=== PATIENT | female | born 1950 | race African-American/Black ===

== ENCOUNTER 2022-08-20 23:22 | Inpatient (IN) | payer MEDICARE, OTHER ==
[~2022-08-20] VITALS: Ht 170.2 cm; Wt 58.1 kg
--- NOTE | 2022-08-20 23:30 | NUR ---
TO ER BED 3. [id number] C/O EPIGASTRIC PAIN W/ NAUSEA, VOMMITING & DIARRHEA X 1800. PT IS ALERT AND ORIENTED. RR EVEN AND NON LABORED. EMESIS BAG PROVIDED. POX AND HEART MONITOR CONNECTED. AWAITING MD CARBAJAL
[2022-08-20] MEDS ORDERED: MORPHINE SULFATE INJ 2 MG/ML DISP.SYRIN ONE (23:44)
[2022-08-20] MEDS ORDERED: ONDANSETRON HCL/PF 4 MG/2 ML VIAL ONE (23:44)
[2022-08-21] MEDS ORDERED: ONDANSETRON HCL/PF 4 MG/2 ML VIAL IVP ONE
[2022-08-21] MEDS ORDERED: IV NS 0.9% 1,000 ML BAG IV ONE
--- NOTE | 2022-08-21 00:04 | NUR ---
BLOOD COLLECTED AND SENT TO LAB
--- NOTE | 2022-08-21 00:04 | NUR ---
PT UNABLE TO PROVIDE URINE SAMPLE AT THIS TIME
--- NOTE | 2022-08-21 00:04 | NUR ---
IV LINE ESTABLISHED, LAC20G
[2022-08-21 00:24] LABS: BASOPHILS % (AUTO) 0.3 % (0.0-2.0); EOSINOPHILS % (AUTO) 0.1 % (0.0-6.0); HEMATOCRIT 38 % (33-45); HEMOGLOBIN 12.8 g/dL (11.5-14.8); LYMPHOCYTES # (AUTO) 0.6 K/uL (0.8-4.8); LYMPHOCYTES % (AUTO) 5.2 % (20.0-44.0); MEAN CORPUSCULAR HGB CONC 34 g/dl (31.0-36.0); MEAN CORPUSCULAR VOLUME 94 fL (82-100); MONOCYTES # (AUTO) 0.2 K/uL (0.1-1.30); MONOCYTES % (AUTO) 2.3 % (2.0-12.0); NEUTROPHILS # (AUTO) 9.8 K/uL (1.8-8.9); NEUTROPHILS % (AUTO) 92.1 % (43.0-81.0); PLATELET COUNT (AUTO) 207 K/uL (150-450); RED BLOOD CELL COUNT(AUTO) 4.03 MIL/uL (4.0-5.2); WHITE BLOOD COUNT (AUTO) 10.7 K/uL (4.3-11.0)
[2022-08-21 00:42] LABS: CALCIUM, SERUM 9.9 mg/dL (8.5-10.1); CARBON DIOXIDE 28 mmol/L (21-32); CHLORIDE 101 mmol/L (98-107); CREATININE 0.9 mg/dL (0.6-1.3); GLUCOSE 171 mg/dL (74-106); SODIUM SERUM 138 mmol/L (136-145); UREA NITROGEN, BLOOD 20 mg/dL (7-18)
--- NOTE | 2022-08-21 00:52 | NUR ---
PT TAKEN TO CT SCAN VIA GILBERT
[2022-08-21 00:56] LABS: ALANINE AMINOTRANSFERASE 33 U/L (12-78); ALBUMIN 4.1 g/dL (3.4-5.0); ALKALINE PHOSPHATASE 55 U/L (46-116); ASPARTATE AMINOTRANSFERASE 28 U/L (15-37); BILIRUBIN,DIRECT 0.1 mg/dL (0.0-0.2); BILIRUBIN,TOTAL 0.5 mg/dL (0.2-1.0); LIPASE 120 U/L (73-393); TOTAL PROTEIN, SERUM 8.3 g/dL (6.4-8.2)
--- NOTE | 2022-08-21 01:11 | NUR ---
PT RETURNED FROM CT , RECONNECTED TO MONITOR
[2022-08-21] MEDS ORDERED: MORPHINE SULFATE INJ 4 MG/ML DISP.SYRIN ONE (01:38)
[2022-08-21] MEDS ORDERED: ONDANSETRON HCL/PF 4 MG/2 ML VIAL ONE (01:38)
--- NOTE | 2022-08-21 01:49 | NUR ---
[facility] PAGED
--- NOTE | 2022-08-21 01:53 | NUR ---
COVID SWAB COLLECTED
[2022-08-21] MEDS ORDERED: ASPIRIN 325 MG TABLET ONE (01:54)
[2022-08-21] MEDS ORDERED: ACETAMINOPHEN 325 MG TABLET PO PRN (02:00)
[2022-08-21] MEDS ORDERED: MORPHINE SULFATE INJ 2 MG/ML DISP.SYRIN IV ONE ×2 (02:00)
[2022-08-21] MEDS ORDERED: ONDANSETRON HCL/PF 4 MG/2 ML VIAL IV ONE (02:00)
[2022-08-21] MEDS ORDERED: ASPIRIN 325 MG TABLET NG ONE (02:00)
[2022-08-21] MEDS ORDERED: hydrALAZINE HCL IV 20 MG VIAL IV PRN (02:00)
--- NOTE | 2022-08-21 02:19 | NUR ---
NG TUBE INSERTED TO R NARE 14 WELSH @60CM , CALLED XRAY TO CONFIRM PLACEMENT
--- NOTE | 2022-08-21 03:04 | NUR ---
REPORT GIVEN TO DIAMANTE HAGER FOR NAZIA
--- NOTE | 2022-08-21 03:15 | NUR ---
RN ADMITTING NOTE PATIENT RECEIVED FROM RYLAN JACKSON RN. PATIENT IS A/O X 4 ABLE TO MAKE NEEDS KNOWN. PATIENT IS ON RA, TOLERATING WELL, NO SOB NOTED. PATIENT RECEIVED WITH NGT IN PLACE, CXR SHOWS POSITIVE PLACEMENT, ASPIRATED GASTRIC FLUID, AND PUSHED AIR WHILE AUSCULTATING, STOMACH SOUNDS HEARD UPON DOING SO. NOTED TO BE ON THE 63 [address]. PATIENT IS NOT IN ANY PAIN AT THIS TIME, AND PATIENT DENIES NAUSEA/VOMITTING. PATIENT IS CURRENTLY NPO. PATIENT HAS A LAC 20 G PATENT AND INTACT, FLUSHING WELL. PATIENT'S BELONGIGNS INVENTORIED. PATIENT ORIENTED TO ROOM, RN, AND CASINO FLOOR WALKER. PATIENT STATES THAT SHE IS COVID VACCINATED X 2, FLU SHOT RECEIVED THIS SEASON, AND PNEUMONIA SHOT WILL BE RECEIVED ELSEWHERE. SAFETY MEASURES IN PLACE: BED LOCKED AND IN LOWEST POSITION, CALL LIGHT WITHIN REACH, SIDE RAILS UP. WILL MONITOR PATIENT CLOSELY.
--- NOTE | 2022-08-21 04:00 | NUR ---
OBTAINED ORDER FROM DR GODINEZ TO CONNECT PATIENT ON LOW INTERMITTENT SUCTION, ORDER CARRIED OUT.
[2022-08-21] MEDS: IV NS 0.9% 1,000 ML IV SCH ×2 (04:11→15:41)
[2022-08-21 04:14] LABS: BILIRUBIN,URINE NEGATIVE (NEGATIVE); COLOR,URINE YELLOW (YELLOW); LEUKOCYTE ESTERASE ,URINE NEGATIVE (NEGATIVE); NITRITE, URINE POSITIVE (NEGATIVE); PROTEIN,URINE NEGATIVE (NEGATIVE); UGLUCOSE NEGATIVE (NEGATIVE); UROBILINOGEN,URINE 0.2 EU/dL (0.2)
[2022-08-21 04:19] LABS: BACTERIA,URINE Many /HPF (None Seen); RBC,URINE 0-2 /HPF (0-2); SQUAMOUS EPITHELIAL CELL,UR Few /HPF (None Seen)
--- NOTE | 2022-08-21 05:25 | NUR ---
INFORMED MD THAT PATIENT'S POTASSIUM LEVEL IS 3.0, MD ORDERED KCL 40 MEQ IV ONCE.
--- NOTE | 2022-08-21 05:40 | NUR ---
HOME MEDICATION BOTTLES DOCUMENTED AND PLACED IN A "PATIENT'S OWN MEDICATIONS ENVELOPE", PATIENT SIGNED AND PLACED ATTACHMENT IN THE CHART. WILL GIVE ENVELOPE TO PHARMACY
[2022-08-21] MEDS ORDERED: LEVO50TA8 PO (05:42)
[2022-08-21] MEDS ORDERED: HYDR25TA4 PO (05:42)
[2022-08-21] MEDS: POTASSIUM CHLORIDE 10 MEQ/50 ML PREMIXED IVPB FOR PERIPHERAL LINE IV SCH ×4 (05:48→09:14)
--- NOTE | 2022-08-21 06:53 | NUR ---
RN CLOSING NOTE PATIENT IN BED, EYES CLOSED. PATIENT IS EASILY AWAKENED. NGT PATENCY AND POSITIVE PLACEMENT MAINTAINED, LOW INTERMITTENT SUCTION ON. PATIENT HAS ONGOING POTASSIUM CHLORIDE IV (SECOND BAG) ON THE L AC 20 G WELL NS AT 75 ML/HR, INFUSING WELL. PATIENT REPORTS NO ABDOMINAL PAIN AND DENIES ANY NAUSEA AT THIS TIME, AND NO VOMITTING DURING THE SHIFT. TELE MONITOR READS SR 60 BPM. SAFETY MEASURES IN PLACE: BED LOCKED AND IN LOWEST POSITION, CALL LIGHT WITHIN REACH, SIDE RAILS UP. ALL NEEDS MET AND ATTENDED. ALL ORDERS CARRIED OUT. WILL ENDORSE TO DAY SHIFT NURSE FOR NAZIA.
--- NOTE | 2022-08-21 07:00 | NUR ---
WAREHOUSE GUARD OPENING NOTES PATIENT LAYING IN BED, A/O X 3, ABLE TO MAKE NEEDS KNOWN, TOLERATING WELL ON LOW INTERMITTENT SUCTION VIA NG TUBE. POTASSIUM CHLORIDE INFUSION ONGOING VIA L AC # 20 IV WELL NS @ 75 ML/HR. TELE MONITOR IN PLACE READING NSR. SAFETY MEASURES IN PLACE: BED IN LOWEST LOCKED POSITION, SIDE RAILS UP X 2, CALL LIGHT WITHIN REACH. WILL CONTINUE TO MONITOR.
[2022-08-21 08:00] VITALS: BP 155/80
[2022-08-21] MEDS: MORPHINE SULFATE INJ 2 MG/ML DISP.SYRIN IV PRN ×2 (08:15→14:42)
[2022-08-21 10:19] LABS: THYROID STIMULATING HORMONE 0.937 uIU/mL (0.358-3.74)
[2022-08-21 10:38] LABS: MAGNESIUM 2.5 mg/dL (1.8-2.4)
[2022-08-21] MEDS: CEFTRIAXONE 1 G in IV D5W 50 ML IV SCH (10:50)
[2022-08-21] MEDS: ONDANSETRON HCL/PF 4 MG/2 ML VIAL IVP PRN (11:16)
[2022-08-21] MEDS ORDERED: Magnesium 1GM/D5W 100ML PREMIX 100 ML IV SCH (13:00)
[2022-08-21 16:00] VITALS: BP 153/74
--- NOTE | 2022-08-21 19:00 | NUR ---
SANDBLASTER SUPERVISOR CLOSING NOTES PATIENT LAYING IN BED, A/O X 3, ABLE TO MAKE NEEDS KNOWN, TOLERATING WELL ON LOW INTERMITTENT SUCTION VIA NG TUBE. L AC # 20 IV WITH NS INFUSING @ 75 ML/HR. TELE MONITOR IN PLACE READING SINUS ADA 58. SAFETY MEASURES IN PLACE: BED IN LOWEST LOCKED POSITION, SIDE RAILS UP X 2, CALL LIGHT WITHIN REACH. ALL NEEDS MET. WILL ENDORSE TO MACHINE SHOP SUPERVISOR FOR NAZIA.
--- NOTE | 2022-08-21 19:30 | NUR ---
LOGGER ALL ROUND OPENING NOTE RECEIVED PATIENT IN BED, WITH HOB ELEVATED, ALERT AND ORIENTED X2. ABLE TO MAKE NEEDS KNOWN. AFEBRILE AND NOT IN ANY FORM OF ACUTE DISTRESS. BREATHING EVEN AND NON LABORED. ON TELE MONITORING SR. WITH NG TUBE ON LOW INTERMITTENT SUCTION. MAINTAINED ON NPO ORDERED. WITH IV ACCESS ON LAC 20G RUNNING WITH NS AT 75ML/HR. SAFETY MEASURES IN PLACE. KEPT BED IN LOCKED AND IN LOW POSITION. SIDE RAILS UP X2. ADVISED TO USE THE CALL LIGHT WHEN IN NEED OF ASSISTANCE.
[2022-08-21 20:00] VITALS: BP 139/68
[2022-08-22] VITALS: BP 158/76
[2022-08-22] MEDS: ONDANSETRON HCL/PF 4 MG/2 ML VIAL IVP PRN (03:10)
[2022-08-22] MEDS: MORPHINE SULFATE INJ 2 MG/ML DISP.SYRIN IV PRN (03:30)
[2022-08-22 04:00] VITALS: BP 143/77
[2022-08-22] MEDS: IV NS 0.9% 1,000 ML IV SCH ×2 (04:51→18:22)
[2022-08-22 06:27] LABS: BASOPHILS % (AUTO) 0.2 % (0.0-2.0); EOSINOPHILS % (AUTO) 0.2 % (0.0-6.0); HEMATOCRIT 37 % (33-45); HEMOGLOBIN 12.6 g/dL (11.5-14.8); LYMPHOCYTES # (AUTO) 0.6 K/uL (0.8-4.8); LYMPHOCYTES % (AUTO) 7.2 % (20.0-44.0); MEAN CORPUSCULAR HGB CONC 34 g/dl (31.0-36.0); MEAN CORPUSCULAR VOLUME 96 fL (82-100); MONOCYTES # (AUTO) 0.4 K/uL (0.1-1.30); MONOCYTES % (AUTO) 5.3 % (2.0-12.0); NEUTROPHILS % (AUTO) 87.1 % (43.0-81.0); PLATELET COUNT (AUTO) 193 K/uL (150-450); RED BLOOD CELL COUNT(AUTO) 3.88 MIL/uL (4.0-5.2)
--- NOTE | 2022-08-22 06:39 | NUR ---
CAMP MANAGER CLOSING NOTE PATIENT IN BED, WITH HOB ELEVATED, ALERT AND ORIENTED X4. ABLE TO COMMUNICATE NEEDS WITH THE STAFFS. AFEBRILE AND NOT IN ANY FORM OF ACUTE DISTRESS. BREATHING EVEN AND NON LABORED. NO C/O PAIN OR DISCOMFORT AT THIS TIME OF THE SHIFT. ON TELE MONITORING SB 58 WITH PAC. WITH NG TUBE ON LOW INTERMITTENT SUCTION. MAINTAINED ON NPO ORDERED. WITH IV ACCESS ON LAC 20G RUNNING WITH NS AT 75ML/HR. SAFETY MEASURES IN PLACE. KEPT BED IN LOCKED AND IN LOW POSITION. SIDE RAILS UP X2. ADVISED TO USE THE CALL LIGHT WHEN IN NEED OF ASSISTANCE. ALL NURSING NEEDS ATTENDED. ENDORSED TO INCOMING SHIFT FOR CONTINUITY OF CARE.
[2022-08-22 06:54] LABS: ALBUMIN 3.3 g/dL (3.4-5.0); BILIRUBIN,TOTAL 0.6 mg/dL (0.2-1.0); CALCIUM, SERUM 8.7 mg/dL (8.5-10.1); CREATININE 0.8 mg/dL (0.6-1.3); MAGNESIUM 2.8 mg/dL (1.8-2.4); PHOSPHORUS 2.5 mg/dL (2.5-4.9); POTASSIUM 3.3 mmol/L (3.5-5.1); TOTAL PROTEIN, SERUM 7.2 g/dL (6.4-8.2)
--- NOTE | 2022-08-22 07:00 | NUR ---
NET DEVELOPER CONSULTANT OPENING NOTES PATIENT LAYING IN BED, HOB ELEVATED, A/O X 4 AND ABLE TO MAKE NEEDS KNOWN. TOLERATING WELL ON ROOM AIR WITH NO S/S RESPIRATORY DISTRESS. NGT INSERTED IN R NARE TO LOW INTERMITTENT SUCTIONING, TOLERATING WELL. PATIENT ON NPO STATUS. NO COMPLAINTS OF PAIN OR DISCOMFORT AT THIS TIME. TELE MONITOR IN PLACE READING SINUS ADA. L AC # 20 IV WITH NS @ 75 ML/HR. SAFETY MEASURES IN PLACE. KEPT BED IN LOCKED AND IN LOW POSITION. SIDE RAILS UP X2. ADVISED TO USE THE CALL LIGHT WHEN IN NEED OF ASSISTANCE. WILL CONTINUE TO MONITOR.
[2022-08-22 08:00] VITALS: BP 143/77
[2022-08-22] MEDS: ENOXAPARIN SODIUM 40 MG/0.4 ML DISP.SYRIN SQ SCH (08:55)
[2022-08-22] MEDS: POTASSIUM CL. PREMIX PERIPHER. 50 ML IV SCH ×4 (08:55→13:15)
[2022-08-22] MEDS: CEFTRIAXONE 1 G in IV D5W 50 ML IV SCH (10:36)
[2022-08-22 12:00] VITALS: BP 139/62
[2022-08-22 16:00] VITALS: BP 131/57
--- NOTE | 2022-08-22 19:00 | NUR ---
LEGAL DIRECTOR CLOSING NOTES PATIENT LAYING IN BED, HOB ELEVATED, A/O X 4 AND ABLE TO MAKE NEEDS KNOWN. TOLERATING WELL ON ROOM AIR WITH NO S/S RESPIRATORY DISTRESS. NGT INSERTED IN R NARE TO LOW INTERMITTENT SUCTIONING, TOLERATING WELL. PATIENT ON NPO STATUS. NO COMPLAINTS OF PAIN OR DISCOMFORT AT THIS TIME. TELE MONITOR IN PLACE READING SINUS ADA. L AC # 20 IV WITH NS @ 75 ML/HR. SAFETY MEASURES IN PLACE. KEPT BED IN LOCKED AND IN LOW POSITION. SIDE RAILS UP X2. ADVISED TO USE THE CALL LIGHT WHEN IN NEED OF ASSISTANCE. ALL NEEDS MET. WILL ENDORSE TO TANK BUILDER AND ERECTOR FOR NAZIA.
--- NOTE | 2022-08-22 19:52 | NUR ---
SIGNING AGENT OPENING NOTES: RECEIVED PATIENT AWAKE IN BED, BED IN LOW POSITION CALL LIGHTS WITHIN REACH, NO COMPLAIN OF PAIN AND DISCOMFORT AT THIS TIME, ON ROOM AIR SATURATING WELL, PATIENT IS A/OX4 AMBULATORY, ON NGT FEEDING , NPO, ON TELE MONITOR- SB-48, PATIENT KEPT CLEAN AND DRY ALL NEEDS MET WILL CONTINUE TO MONITOR.
[2022-08-22 20:00] VITALS: BP 150/80
[2022-08-23] VITALS (7 sets, daily range): BP systolic 112–144; BP diastolic 62–88
--- NOTE | 2022-08-23 06:08 | NUR ---
FINANCIAL REPORTING CONSULTANT CLOSING NOTES: PATIENT SLEEP IN BED COMFORTABLY, AROUSABLE TO VERBAL STIMULI, BED IN LOW POSITION CALL LIGHTS WITHIN REACH, ON ROOM AIR SATURATING WELL, NO SOB WAS OBSERVED, ON TELE MONITOR- SB 48, PATIENT IS A/OX4 ABLE TO MAKE NEEDS KNOWN, AMBULATORY WITH SUPERVISION, WITH NGT ON GASTRIC EMPTYING TO INTERMITTENT SUCTION, PATIENT KEPT CLEAN AND DRY ALL NEEDS MET ENDORSE TO INCOMING SHIFT.
--- NOTE | 2022-08-23 07:00 | NUR ---
PRECISION INSTRUMENT MAKER AND REPAIRER OPENING NOTES PATIENT LAYING IN BED, HOB ELEVATED, A/O X 4 AND ABLE TO MAKE NEEDS KNOWN. TOLERATING WELL ON ROOM AIR WITH NO S/S RESPIRATORY DISTRESS. NGT INSERTED IN R NARE TO LOW INTERMITTENT SUCTIONING, TOLERATING WELL. PATIENT ON NPO STATUS. NO COMPLAINTS OF PAIN OR DISCOMFORT AT THIS TIME. TELE MONITOR IN PLACE READING SINUS ADA. L AC # 20 IV WITH NS @ 75 ML/HR. SAFETY MEASURES IN PLACE. KEPT BED IN LOCKED AND IN LOW POSITION. SIDE RAILS UP X2. ADVISED TO USE THE CALL LIGHT WHEN IN NEED OF ASSISTANCE. WILL CONTINUE TO MONITOR. Addendum: 08/23/22 at 1527 by SARAH RAYMOND RN DISREGARD NOTE
--- NOTE | 2022-08-23 07:27 | NUR ---
UPHOLSTERER HELPER OPENING NOTE RECEIVED PT AWAKE AND RESTING IN BED. PT A/O X4, ABLE TO MAKE NEED KNOWN. ON ROOM AIR, TOLERATING WELL. NO SOB NOTED. NOT IN ANY SIGN OF RESPIRATORY DISTRESS. ON TELE NATUROPATHIC ONCOLOGY PROVIDER WITH CURRENT READING OF SINUS RHYTHM, HR 74. NO C/O OF CARDIAC DISTRESS VOICED OUT AT THIS TIME. IV ACCESS IN LAC G#20, INTACT AND PATENT. PT'S NG TUBE TO RIGHT NARE IN PLACE AND PATENT. SAFETY MEASURES IN PLACE: BED IN LOWEST AND LOCKED POSITION, SIDE RAILS UPX2, BED ALARM ON, KEPT HOB ELEVATED, AND CALL LIGHT WITHIN REACH. WILL CONTINUE TO MONITOR PT.
[2022-08-23] MEDS: ENOXAPARIN SODIUM 40 MG/0.4 ML DISP.SYRIN SQ SCH (08:58)
--- NOTE | 2022-08-23 10:15 | NUR ---
RN NOTE DR. LAMBERT ORDERED TO CLAMP NG TUBE AND CHECK RESIDUAL IN 4HRS, IF RESIDUAL <100, MAY D/C NG TUBE AND START CLEAR LIQUIDS. IF RESIDUAL IS >100, RESUME SUCTIONING AND PROCEED TO SMALL BOWEL FOLLOW THROUGH TOMORROW MORNING. NG TUBE CLAMPED ORDERED, TOLERATING WELL. PT DENIES NAUSEA AND VOMITING AT THIS TIME. WILL MONITOR AND REASSESS PT.
[2022-08-23] MEDS: CEFTRIAXONE 1 G in IV D5W 50 ML IV SCH (11:22)
--- NOTE | 2022-08-23 14:15 | NUR ---
RN NOTE AFTER 4HRS AFTER NG TUBE WAS CLAMPED, CHECKED RESIDUAL AND IT'S 20CC. NG TUBE REMOVED AND CLEAR LIQUID DIET STARTED ORDERED BY DR. LAMBERT. DENIES NAUSEA AND VOMITING AT THIS TIME.
--- NOTE | 2022-08-23 19:00 | NUR ---
PAPER TUBE GRADER OPENING NOTE RECEIVED PT IN BED, AWAKE. PT IS CALM, A/O X4. SHE IS ABLE TO MAKE NEEDS KNOWN. PATIENT IS ON CLEAR LIQUID DIET AFTER NPO. SHE STATES THAT SHE TAKES THE CLEAR LIQUID IN SMALL PORTION EACH TIME. PATIENT DENIES OF HAVING PAIN. NO N/V. PATIENT IS ON ROOM AIR, TOLERATING WELL. NO S/S OF SOB OR DISTRESS. SHE IS ON TELE CONTACT CENTER REPRESENTATIVE WITH SINUS RHYTHM AROUND 60'S. IV ACCESS IN LAC #20 G, SL, INTACT AND PATENT. SAFETY MEASURES IN PLACE: BED IN LOWEST AND LOCKED POSITION, SIDE RAILS UPX2, BED ALARM ON, KEPT HOB ELEVATED, AND CALL LIGHT WITHIN REACH. WILL CONTINUE TO MONITOR THE PT THROUGH THE SHIFT.
--- NOTE | 2022-08-23 19:20 | NUR ---
CAN FEEDER CLOSING NOTE PT AWAKE AND RESTING IN BED. PT A/O X4, ABLE TO MAKE NEED KNOWN. ON ROOM AIR, TOLERATING WELL. NO SOB NOTED. NOT IN ANY SIGN OF RESPIRATORY DISTRESS. ON TELE GAME BIRD FARMER WITH CURRENT READING OF SINUS RHYTHM, HR 80. NO C/O OF CARDIAC DISTRESS VOICED OUT AT THIS TIME. IV ACCESS IN LAC G#20, INTACT AND PATENT. ALL NEEDS ATTENDED. KEPT CLEAN AND COMFORTABLE AT ALL TIMES. PT DENIES PAIN, NAUSEA AND VOMITING AT THIS TIME. SAFETY MEASURES IN PLACE: BED IN LOWEST AND LOCKED POSITION, SIDE RAILS UPX2, BED ALARM ON, KEPT HOB ELEVATED, AND CALL LIGHT WITHIN REACH. ENDORSED TO FLAGSTONE LAYER NURSE FOR NAZIA.
--- NOTE | 2022-08-23 19:57 | NUR ---
DOG POUND ATTENDANT NOTE PATIENT'S HEART RATE RUNS UP AROUND 130'S. ON THE TELE MONITOR: SINUS TACHY. CHECKED THE PATIENT, SHE WAS IN HER BED TALKING OVER THE PHONE AND CRYING. SHE SAID THE REASON SHE WAS CRYING BECAUSE HER NEIGHBOR . ASKED THE PATIENT WAS SHE FEELING OKAY, SHE STATED THAT SHE WAS OKAY. SHE IS STILL TALKING OVER THE PHONE. TOLD THE PATIENT TO LET ME KNOW IF ANYTHING I CAN DO FOR HER. SHE VERBALIZED OKAY AND THANK YOU.
[2022-08-24 04:28] VITALS: BP 109/71
[2022-08-24 06:22] LABS: CALCIUM, SERUM 8.7 mg/dL (8.5-10.1); CREATININE 0.7 mg/dL (0.6-1.3); POTASSIUM 3.1 mmol/L (3.5-5.1)
[2022-08-24 06:23] LABS: BASOPHILS % (AUTO) 0.4 % (0.0-2.0); EOSINOPHILS % (AUTO) 1.3 % (0.0-6.0); HEMATOCRIT 32 % (33-45); LYMPHOCYTES # (AUTO) 1.1 K/uL (0.8-4.8); MEAN CORPUSCULAR HGB CONC 34 g/dl (31.0-36.0); MEAN CORPUSCULAR VOLUME 94 fL (82-100); MONOCYTES # (AUTO) 0.6 K/uL (0.1-1.30); MONOCYTES % (AUTO) 10.9 % (2.0-12.0); NEUTROPHILS # (AUTO) 3.4 K/uL (1.8-8.9); NEUTROPHILS % (AUTO) 66.4 % (43.0-81.0); PLATELET COUNT (AUTO) 190 K/uL (150-450); RED BLOOD CELL COUNT(AUTO) 3.43 MIL/uL (4.0-5.2); WHITE BLOOD COUNT (AUTO) 5.1 K/uL (4.3-11.0)
--- NOTE | 2022-08-24 07:29 | NUR ---
LOAN OFFICER ASSISTANT OPENING NOTES PT RECEIVED AWAKE IN BED IN NO ACUTE SIGNS OF DISTRESS. A/O X4. ABLE TO MAKE NEEDS KNOWNM DENIES PAIN OR ANY DISCOMFORTS AT THIS TIME. ON ROOM AIR, TOLERATING WELL. NO S/S OF SOB OR DISTRESS. ON TELE PRESS SUPERVISOR WITH CURRENT READING OF SB.HR 54, NO C/O CARDIAC DISTRESS VOICED AT THIS TIME. IV ACCESS IN LAC #20 G, SL, INTACT AND PATENT. SAFETY MEASURES IN PLACE: BED IN LOWEST LOCKED POSITION, SIDE RAILS UPX2, BED ALARM ON, KEPT HOB ELEVATED AND CALL LIGHT WITHIN REACH. WILL CONTINUE TO MONITOR PT ACCORDINGLY.
[2022-08-24] MEDS: POTASSIUM CL. PREMIX PERIPHER. 50 ML IV SCH ×4 (08:05→12:21)
[2022-08-24] MEDS: ENOXAPARIN SODIUM 40 MG/0.4 ML DISP.SYRIN SQ SCH (08:06)
--- NOTE | 2022-08-24 08:17 | NUR ---
ACCOUNTING ADMINISTRATIVE ASSISTANT CLOSING NOTE PT IS AWAKE AND CALM. DURING THE SHIFT, SHE WALKS IN THE HALLWAY AFTER WAKING UP IN THE MORNING. GAIT IS STEADY. A/O X4. SHE IS ABLE TO MAKE NEEDS KNOWN. PATIENT IS ON CLEAR LIQUID DIET, TOLERATED WELL. PATIENT DENIES OF HAVING PAIN. NO N/V. PATIENT IS ON ROOM AIR, NO S/S OF SOB OR DISTRESS. SHE IS ON TELE SUBWAY CONDUCTOR WITH SINUS RHYTHM AROUND 60'S AND 50'S. IV ACCESS IN LAC #20 G, SL, INTACT AND PATENT. SAFETY MEASURES IN PLACE: BED IN LOWEST AND LOCKED POSITION, SIDE RAILS UPX2, BED ALARM ON, KEPT HOB ELEVATED, AND CALL LIGHT WITHIN REACH. WILL ENDORSE NEXT SHIFT NURSE FOR CONTINUE PATIENT CARE.
[2022-08-24 08:24] VITALS: BP 135/64
--- NOTE | 2022-08-24 10:18 | NUR ---
RN NOTES DR MEJIA ON UNIT EARLIER AND REPORTED TO HIM THAT PT HAS POLTS THAT STATED SHE'S DNR. ASKED IF WE'LL FOLLOW THE POLTS AND HE SAID "YES". Addendum: 08/24/22 at 1819 by GOLD HOLBROOK RN CORRECTION: PATIENT IS FULL CODE NOT DNR
[2022-08-24] MEDS: CEFTRIAXONE 1 G in IV D5W 50 ML IV SCH (11:27)
[2022-08-24 16:16] VITALS: BP 146/72
--- NOTE | 2022-08-24 18:38 | NUR ---
EDI PROGRAMMER ANALYST CLOSING NOTES PT ON THE HALLWAY WALKING AND TALKING TO SOMEONE ON HER CP. A/O X4. ABLE TO MAKE NEEDS KNOWN. ON ROOM AIR, TOLERATING WELL., NO S/S OF SOB OR ACUTE RESPIRATORY DISTRESS NOTED DURING SHIFT. ON TELE MONITOR WITH CURRENT READING OF SR HR 81, NO C/O CARDIAC DISTRESS VOICED. IV ACCESS IN LAC #20 G, SL, INTACT AND PATENT. ALL NEEDS AND CARE ATTENDED WELL. SAFETY MEASURES KEPT IN PLACE: CALL LIGHT WITHIN REACH OF PT. WILL ENDORSE NAZIA TO BELT MEASURER NURSE.
--- NOTE | 2022-08-24 18:54 | NUR ---
RN NOTES PT COMPLAINED THAT SHE'S VERY UNCOMFORTABLE WITH HER IV ACCESS ON LAC AND WANTED IT REMOVED. REMOVED PIV ON RAC G# 20 WITH NO ACTIVE BLEEDING NOTED, DRY PRESSURE DRESSING APPLIED AT SITE AND INSERTED NEW IV ACCESS ON RFA G#22 AND SECURED WITH TAPE.
--- NOTE | 2022-08-24 19:10 | NUR ---
RN OPENING NOTE PATIENT IN BED, AWAKE. PATIENT IS A/O X 4, ABLE TO MAKE NEEDS KNOWN. ON RA, TOLERATING WELL. NO SOB NOTED. TELE MONITOR READS SR 60 BPM. PATIENT CURRENTLY HAS A RFA 22 G RUNNING KCL IV AT THIS TIME. PATIENT DOES NOT REPORT ANY N/V, DENIES PAIN. SAFETY MEASURES IN PLACE: BED LOCKED AND IN LOWEST POSITION, CALL LIGHT WITHIN REACH, SIDE RAILS UP. WILL MONITOR PATIENT CLOSELY.
--- NOTE | 2022-08-24 19:20 | NUR ---
PATIENT EXPRESSES DISCOMFORT REGARDING HER NEW IV ACCESS ON THE RFA, STATES THAT SHE CAN'T DO ANYTHING WITH HER HAND NOW BECAUSE OF THE PLACEMENT. PATIENT INSIST ON REMOVING NEW IV ACCESS AND INSERTING A NEW ONE HIGHER ON THE FA. INFORMED PATIENT THAT WE WILL TRY TO INSERT NEW IV AT A LATER TIME.
[2022-08-24 20:00] VITALS: BP 137/75
[2022-08-25] VITALS: BP 121/65
--- NOTE | 2022-08-25 03:00 | NUR ---
ATTEMPTED TO PUT NEW IV ACCESS BUT PATIENT STATES THAT SHE CHANGED HER MIND AND THAT SHE IS OKAY WITH THE PLACEMENT OF THE IV ACCESS. IV FLUSHING WELL, NOLEAKAGE OR SIGNS OF INFILTRATION NOTED.
[2022-08-25 04:00] VITALS: BP 129/75
[2022-08-25 04:33] VITALS: BP 121/65
[2022-08-25 06:46] LABS: BASOPHILS % (AUTO) 0.6 % (0.0-2.0); EOSINOPHILS % (AUTO) 1.6 % (0.0-6.0); HEMATOCRIT 36 % (33-45); HEMOGLOBIN 12.3 g/dL (11.5-14.8); LYMPHOCYTES # (AUTO) 0.8 K/uL (0.8-4.8); LYMPHOCYTES % (AUTO) 18.8 % (20.0-44.0); MEAN CORPUSCULAR HGB CONC 34 g/dl (31.0-36.0); MEAN CORPUSCULAR VOLUME 94 fL (82-100); MONOCYTES # (AUTO) 0.3 K/uL (0.1-1.30); MONOCYTES % (AUTO) 7.5 % (2.0-12.0); NEUTROPHILS # (AUTO) 3.2 K/uL (1.8-8.9); NEUTROPHILS % (AUTO) 71.5 % (43.0-81.0); PLATELET COUNT (AUTO) 226 K/uL (150-450); RED BLOOD CELL COUNT(AUTO) 3.84 MIL/uL (4.0-5.2); WHITE BLOOD COUNT (AUTO) 4.5 K/uL (4.3-11.0)
--- NOTE | 2022-08-25 06:56 | NUR ---
RN CLOSING NOTE PATIENT IN BED, AWAKE. PATIENT IS A/O X 4, ABLE TO MAKE NEEDS KNOWN. ON RA, TOLERATING WELL. NO SOB NOTED. TELE MONITOR READS SR 64 BPM. PATIENT CURRENTLY HAS R FA 22 G, SALINE LOCKED, FLUSHING WELL. PATIENT DOES NOT REPORT ANY N/V, DENIES PAIN. PATIENT WISHES TO GET A LAXATIVE AFTER BREAKFAST. SAFETY MEASURES IN PLACE: BED LOCKED AND IN LOWEST POSITION, CALL LIGHT WITHIN REACH, SIDE RAILS UP. ALL NEEDS MET AND ATTENDED. ALL ORDERS CARRIED OUT. WILL ENDORSE TO DAY SHIFT NURSE FOR NAZIA.
--- NOTE | 2022-08-25 07:02 | NUR ---
SECRETARY BOOK KEEPER OPENING NOTES PATIENT RECEIVED AWAKE IN BED IN NO SIGNS OF DISTRESS. A/O X4. ABLE TO MAKE NEEDS KNOWN DENIES PAIN OR ANY DISCOMFORTS AT THIS TIME. ON ROOM AIR, TOLERATING WELL. NO S/S OF SOB OR DISTRESS. ON TELE CUSTOMER ACCOUNT SPECIALIST WITH CURRENT READING OF SR HR 68, NO C/O CARDIAC DISTRESS VOICED AT THIS TIME. IV ACCESS IN R FA #22 G, SL, INTACT AND PATENT. SAFETY MEASURES IN PLACE: BED IN LOWEST LOCKED POSITION, SIDE RAILS UPX2, BED ALARM ON, KEPT HOB ELEVATED AND CALL LIGHT WITHIN REACH. WILL CONTINUE TO MONITOR.
[2022-08-25 07:14] LABS: CALCIUM, SERUM 8.9 mg/dL (8.5-10.1); CREATININE 0.8 mg/dL (0.6-1.3); POTASSIUM 3.2 mmol/L (3.5-5.1)
[2022-08-25 08:00] VITALS: BP 143/75
[2022-08-25] MEDS ORDERED: BISACODYL (5 MG) 5 MG TABLET.DR PO PRN (08:30)
[2022-08-25] MEDS: POTASSIUM CHLORIDE 20 MEQ TAB.PRT.SR PO SCH ×3 (09:36→11:37)
[2022-08-25] MEDS: ENOXAPARIN SODIUM 40 MG/0.4 ML DISP.SYRIN SQ SCH (09:39)
[2022-08-25] MEDS: CEFTRIAXONE 1 G in IV D5W 50 ML IV SCH (11:18)
[2022-08-25 12:00] VITALS: BP 126/74
--- NOTE | 2022-08-25 19:25 | NUR ---
DISCHARGE NOTES PT LEFT VIA PRIVATE VEHICLE @ 1918. DISCHARGE PAPERWORK PROVIDED. EDUCATION PROVIDED. IV AND WRISTBAND REMOVED. ALL BELONGINGS ACCOUNTED FOR. Addendum: 08/25/22 at 2034 by RIKY MITCHELL RN HEMODYNAMICALLY STABLE.
== END 2022-08-25 19:20 | disposition home or self-care (01) | DRG 388 ==
LOC: ER 23:30 → TELE 08-21 02:43
PROVIDERS: ADMIT Internal Medicine; ATTEND Internal Medicine
DX: K56.609 Unspecified intestinal obstruction, unspecified as to partial versus complete obstruction (principal); I21.A1 Myocardial infarction type 2; E87.6 Hypokalemia; Z90.49 Acquired absence of other specified parts of digestive tract; Z79.899 Other long term (current) drug therapy; E03.9 Hypothyroidism, unspecified; Z79.890 Hormone replacement therapy; Z20.822 Contact with and (suspected) exposure to COVID-19; Z87.19 Personal history of other diseases of the digestive system; I10 Essential (primary) hypertension; K56.2 Volvulus
CPT/HCPCS: 36415; 71045-TC; 74018; 74250-TC; 80048-TC; 80053-TC; 80076-TC; 81001; 83690-TC; 83735-TC; 84100-TC; 84439-TC; 84443-TC; 84484-TC; 85025-TC; 85730-TC; 87081-TC; 87086-TC; 93307-TC; C9803; G0378; J0696; J1650; J2270; J2405; J3475; J3480; J7030; J7040; J7060